=== PATIENT | female | born 1945 | race Caucasian/White ===

== ENCOUNTER 2023-02-22 16:13 | Emergency (ER) | payer MEDICARE, OTHER ==
[2023-02-22] MEDS ORDERED: Sodium Chloride 0.9% 10 ML Syringe FLUSH PRN (16:22)
[2023-02-22] MEDS ORDERED: cloNIDine 0.1 MG Tab PO ONE (16:24)
[2023-02-22 16:43] LABS: BASOPHILS PERCENT AUTO 0.1 % (0.2-1.2); EOSINOPHILS ABSOLUTE AUTO 0.2 x10^3/uL (0.0-0.5); EOSINOPHILS PERCENT AUTO 3.3 % (0.0-4.0); HEMATOCRIT 42.5 % (33.0-47.0); HEMOGLOBIN 14.2 g/dL (12.0-16.0); LYMPHOCYTES ABSOLUTE AUTO 2.6 x10^3/uL (1.0-4.8); LYMPHOCYTES PERCENT AUTO 35.4 % (25.0-50.0); MEAN CORPUSCULAR HEMOGLOBIN 29.4 pg (26.0-32.0); MEAN CORPUSCULAR HGB CONC 33.4 g/dL (32.0-36.0); MONOCYTES ABSOLUTE AUTO 0.6 x10^3/uL (0.0-0.8); MONOCYTES PERCENT AUTO 8.4 % (2.0-11.0); NEUTROPHILS ABSOLUTE AUTO 3.9 x10^3/uL (1.8-7.7); NEUTROPHILS PERCENT AUTO 52.8 % (50.0-80.0); PLATELET COUNT,PLT 199 x10^3/uL (130-400); RED BLOOD CELL COUNT 4.83 x10^6/uL (4.00-5.50); WHITE BLOOD CELL COUNT,WBC 7.3 x10^3/uL (4.0-10.0)
[2023-02-22 17:04] LABS: A/G RATIO 1.39; ALANINE AMINOTRANSFERASE,ALT 31 U/L (14-59); ALBUMIN 4.3 g/dL (3.4-5.0); ALKALINE PHOSPHATASE 77 U/L (46-116); ANION GAP 10.9 mmol/L (5-15); ASPARTATE AMNIOTRANSFERASE,AST 19 U/L (15-37); BILIRUBIN TOTAL 0.3 mg/dL (0.2-1.0); BLOOD UREA NITROGEN,BUN 20 mg/dL (7-18); CALCIUM 9.8 mg/dL (8.5-10.1); CARBON DIOXIDE,CO2 33 mmol/L (21-32); CHLORIDE,CL 103 mmol/L (98-107); CREATININE 0.8 mg/dL (0.55-1.02); ESTIMATED GFR 75 mL/min (>=60); GLUCOSE RANDOM 129 mg/dL (70-99); MAGNESIUM 2.2 mg/dL (1.8-2.4); POTASSIUM,K 4.9 mmol/L (3.5-5.1); PROTEIN TOTAL,TP 7.4 g/dL (6.4-8.2); SODIUM,NA 142 mmol/L (136-145)
[2023-02-22 18:08] VITALS: PULSE 82
[2023-02-22 18:29] VITALS: BP 177/76
== END 2023-02-22 18:26 | disposition home or self-care (01) ==
LOC: VM.ED 16:13
DX: I10 Essential (primary) hypertension (principal); Z88.6 Allergy status to analgesic agent
CPT/HCPCS: 36415; 70450; 80053; 83735; 84484; 85025; 93005; 93010; 99284; 99285; A9270-GY